=== PATIENT | male | born 1995 | race Caucasian/White ===

== ENCOUNTER 2017-09-06 01:29 | Emergency (ER) | payer OTHER ==
[~2017-09-06] VITALS: Ht 172.7 cm; Wt 79.4 kg
[2017-09-06 01:33] VITALS: BP 139/82
[2017-09-06] MEDS ORDERED: PROPOFOL 10 MG/ML, 20ML IVPush ONE (02:00)
[2017-09-06] MEDS ORDERED: PROPOFOL 10 MG/ML, 20ML ONE ×2 (02:15→02:25)
== END 2017-09-06 03:30 | disposition home or self-care (01) ==
LOC: ED 01:52
DX: S43.014A Anterior dislocation of right humerus, initial encounter (principal); G89.11 Acute pain due to trauma; W21.89XA Striking against or struck by other sports equipment, initial encounter; Y93.89 Activity, other specified; Y92.89 Other specified places as the place of occurrence of the external cause; Y99.8 Other external cause status
CPT/HCPCS: 23650; 99152; 99153